=== PATIENT | male | born 1945 | race Caucasian/White ===

== ENCOUNTER → 2023-08-24 07:50 | Outpatient (REF) | payer BC, SELFPAY | LOC: DHCBC/DCA 07:50 | PROVIDERS: ATTENDING PHYSICIAN Internal Medicine Cardiovascular Disease; FAMILY PHYSICIAN Family Medicine | DX: R07.2 Precordial pain (principal) | CPT/HCPCS: 78452; 93017; A9500; J2785 ==

== ENCOUNTER → 2023-09-08 08:03 | Outpatient (REF) | payer BC, SELFPAY | LOC: HWRCS 08:03 | PROVIDERS: ATTENDING PHYSICIAN Internal Medicine Cardiovascular Disease; FAMILY PHYSICIAN Family Medicine | DX: R07.2 Precordial pain (principal) | CPT/HCPCS: 93306 ==

== ENCOUNTER 2024-09-11 23:02 | Day surgery (SDC) | payer BC, SELFPAY ==
[2024-09-11] VITALS (8 sets, daily range): BP systolic 123–144; BP diastolic 68–94; BMI 30.7
--- NOTE | 2024-09-11 19:34 | ED.GENMED ---
History of Present Illness
General
Chief Complaint: Esophageal Problem
Source: patient
Exam Limitations: none
Time Seen by Provider: 09/11/24 19:34
Nursing documentation reviewed up to this point in time: agreed with
History of Present Illness
History of Present Illness:
78 yo w h/o neuropathy, HTN, HLD, GERD, hiatal hernia, Hypothyroid, BPH, Multiple myeloma s/p stem cell transplant, now in remission, presents for difficulty swallowing and a sensation of food being stuck in his esophagus. The patient reports that
he was eating chicken when the sensation occurred. He describes previous similar episodes, occurring approximately three times in the last eight years, where food felt like it went down the wrong way. The patient experiences these episodes as a
stuck sensation that usually resolves spontaneously after about 15 minutes. Today, he couldn't swallow water as it comes back up. He received Glucagon 1 mg IM on arrival and he currently feels about 80% better since the onset of this episode. There
is no associated chest pain at present, though there was some earlier which has mostly resolved. He denies any other gastrointestinal symptoms and reports normal bowel and urinary habits.
Past History
Past History
ED Past Medical History: Cancer (Multiple myeloma in remission since 2009), HTN, Hypercholesterolemia, Other (BPH) and Other (neuropathy)
ED Past Surgical History: Orthopedic and Other (Stem cell transplant)
Social History
Tobacco: Former smoker
Alcohol: Occasional
Personal:
Living: with family
Family History
Family History: Negative Diabetes, Hypertension, Early CAD, Asthma or Cancer
Review of Systems
Review of Systems
Allergies reviewed?: Yes
All Other Systems: ROS reviewed and negative except as documented in HPI and ROS
Cardiac: Reports chest pain
ABD/GI: Reports other (Trouble swallowing, something stuck in his esophagus)
Phy Exam
Physical Exam
Physical Exam:
GENERAL: Acute distress, sensation of foreign body in esophagus, cannot swallow saliva, feeling chest pain. A&Ox3. Is able to speak well, no difficulty breathing
CONSTITUTIONAL: Afebrile.
EYES: clear, conjunctivae normal
ENMT: moist mucus membranes, Pharynx nl
RESPIRATORY: Regular respirations, nonlabored, lungs clear.
CARDIOVASCULAR: Regular rate and rhythm, no murmurs, no rubs.
GI: Soft, nontender, normal BS
MUSCULOSKELETAL: Moves with ease. Well perfused.
SKIN: Warm, dry, pink
PSYCH: Anxious mood and affect. Well kept, interactive and appropriate
NEUROLOGIC: Awake, alert and oriented. No focal neurological deficits
Course
Orders/Labs/Results
Orders:
Orders
09/11/24 19:28
EKG [Electrocardiogram (*1)] Urgent
Reason for Study: Chest Pain
EKG- Treatment ONCE
09/11/24 19:29
Glucagon [GlucaGen] 2 mg .ROUTE .STK-MED ONE
09/11/24 19:33
Glucagon [GlucaGen] 1 mg IM NOW STA
09/11/24 19:57
Glucagon [GlucaGen] 1 mg IV NOW STA
09/11/24 21:05
Sugammadex Sodium [Bridion] 200 mg .ROUTE .STK-MED ONE
09/11/24 21:06
Lidocaine 2% Mpf [Xylocaine Mpf 2%] 100 mg .ROUTE .STK-MED ONE
Ondansetron Injectable [Zofran] 4 mg .ROUTE .STK-MED ONE
Phenylephrine HCl/0.9% NaCl [Mo-Synephrine] 1,000 mcg .ROUTE .STK-MED ONE
Propofol [Diprivan] 20 ml .ROUTE .STK-MED
Rocuronium [place] [Rocuronium] 50 mg .ROUTE .STK-MED ONE
Succinylcholine Chloride [Succinylcholine] 200 mg .ROUTE .STK-MED ONE
Vital Signs
Initial and Last Documented VS:
Initial Vital Signs
Temp Pulse Resp BP Pulse Ox
98.2 F 87 20 144/94 98
09/11/24 19:17 09/11/24 19:17 09/11/24 19:17 09/11/24 19:17 09/11/24 19:17
Last Documented Vital Signs
Temp Pulse Resp BP Pulse Ox
98.0 F 95 17 124/68 94
09/11/24 22:47 09/11/24 22:47 09/11/24 22:47 09/11/24 22:47 09/11/24 22:47
MDM/Problems Addressed
Differential Diagnosis Includes:
1. Esophageal Stricture
2. Schatzki Ring
3. Esophageal Webs
4. Achalasia
5. Esophageal Spasm
6. Eosinophilic Esophagitis
7. Esophageal Cancer
8. Peptic Stricture
9. Gastroesophageal Reflux Disease (GERD)
10. Foreign Body Impaction
MDM/Problems Addressed:
78 yo w h/o neuropathy, HTN, HLD, GERD, hiatal hernia, Hypothyroid, BPH, Multiple myeloma s/p stem cell transplant, now in remission, presents for difficulty swallowing and a sensation of food being stuck in his esophagus. The patient reports that
he was eating chicken when the sensation occurred. He describes previous similar episodes, occurring approximately three times in the last eight years, where food felt like it went down the wrong way. The patient experiences these episodes as a
stuck sensation that usually resolves spontaneously after about 15 minutes. Today, he couldn't swallow water as it comes back up.
7:40 PM
EKG
He received Glucagon 1 mg IM on arrival and he currently feels about 80% better since the onset of this episode. There is no associated chest pain at present, though there was some earlier which has mostly resolved. He denies any other
gastrointestinal symptoms and reports normal bowel and urinary habits.
8:00 PM:
Unsuccessful trial at swallowing water, coughing it back up and feeling pain in the epigastric distal esophageal area
Second dose of glucagon 1 mg IV given
8:30 p.m.
Pt still unable to swallow saliva, pain is distal esophagus remains, vomiting intermittently
Consulted GI Dr. Chaparro who will be in
9:[address] Chaparro in
*Pulse Oximetry
SaO2: 98
Oxygen Mode of Delivery: Room air
Patient hypoxic: no
*Critical Care Note
Total Time (30-74mins, 75-104mins- exclusive of procedures): Not Applicable
ED Attending Note
-
Portions of this chart may have been created with voice recognition software.� Occasional wrong word or��sound alike� substitutions may have occurred due to the inherent limitations of voice recognition software.
Discharge Plan
Departure
Patient Disposition: OR
Date of Disposition: 09/11/24
Time of Disposition: 22:16
Presentation/result/management discussed w/ accepting MD/DO: Shankar
Condition: Fair
Discharge Problem:
Esophageal obstruction due to food impaction
Prescriptions:
No Action
Doxycycline
100 mg PO DAILY
Lipitor:
20 mg PO DAILY
Patient Comments:
Pt. not sure of some of his med's dosage
Synthroid
200 mcg PO .DAILY EXCEPT TUESDAY
aspirin 325 MG tablet
325 mg PO DAILY
sertraline 100 MG tablet
100 mg PO DAILY
levothyroxine 100 MCG tablet
100 mcg PO .TUESDAY
tamsulosin 0.4 MG capsule
0.4 mg PO DAILY
valsartan [Diovan] 320 MG tablet
320 mg PO DAILY
omeprazole 20 MG capsule,delayed release(DR/EC)
20 mg PO DAILY
gabapentin 100 MG capsule
100 mg PO TID
diphenhydramine HCl [Banophen] 25 MG capsule
25 mg PO HSPRN PRN (Reason: sleep)
celecoxib 200 MG capsule
200 mg PO DAILY Qty: 10 0RF
sennosides [senna] 1 TABLET tablet
2 tab PO BID 0RF
acetaminophen 325 MG tablet
650 mg PO QID 0RF
polyethylene glycol 3350 17 GRAMS powder in packet
17 grams PO DAILY 0RF
magnesium hydroxide 30 ML suspension
30 ml PO DAILYPRN PRN (Reason: constipation) 0RF
docusate sodium 100 MG capsule
100 mg PO BID 0RF
oxycodone 5 MG tablet
1 - 2 tab PO Q4HPRN PRN (Reason: moderate-severe pain) Qty: 60 0RF
acetaminophen-codeine 1 TABLET tablet
1 tab PO Q4HPRN PRN (Reason: severe pain) Qty: 10 0RF
Referrals:
UNKNOWN - PT DOES,NOT KNOW [Unknown Provider]
Interventions
Interventions:
*Risk Screen - Suicide Last Done: 09/11/24 19:17
*General Assessment Last Done: 09/11/24 19:17
*ED- Fall Risk Assessment Last Done: 09/11/24 19:17
*ED COVID-19 Vaccine History Last Done: 09/11/24 19:17
*Nursing Disposition Last Done: 09/11/24 22:23
[facility] Assessment Last Done: 09/11/24 19:39
Discharge Date and Time
Discharge Date/Time: 09/11/24 22:23
Print Language: ITALIAN
--- NOTE | 2024-09-11 21:05 | CON.GI ---
Consultation
-
Date/Time Consultation Requested: 09/11/24, 8:30 PM
Date/Time Consultation Performed: 09/11/24, 9:05 PM
Requesting Provider: VIK Thorne
Performing Provider: Roosevelt Chaparro DO
Reason for Consultation: Food Impaction
Medical History
Chief Complaint / HPI
Chief Complaint: C/f Food Impaction
History of Present Illness:
Mr. Hart is a 78 y.o male with a past medical history of HTN, HLD, hypothyroidism, multiple myeloma (s/p stem cell transplant, in remission), GERD, and hiatal hernia who presented to the ED with dysphagia and inability to tolerate secretions. GI
has been consulted due to the concern for a food impaction.
Patient states he was in his usual state of health and reports eating chicken this evening when he suddenly felt a piece of chicken feel stuck in his esophagus. He reports eating one bite of chicken during dinner where he felt a sensation of it
being hung up in his chest. Reports having chest discomfort but denies any pain or SOB. He notes previous episodes occurring the past approximately 5-6 times of the past 10 years. He has never had a prior EGD in the past or previous ED visits for
food impactions. He states the episodes would usually last 10-15 minutes and subsequently eventually resolve on their own. He denies any chronic dysphagia, odynophagia, nausea/vomiting, chronic reflux or heartburn, melena, or unintentional weight
loss. He is on daily aspirin but denies any other blood thinners or antiplatelets. He denies any known esophageal disorder. He was given 2 separate doses of glucagon 1 mg in the ED where initially felt better however still with inability to
tolerate secretions and failed p.o. challenge. He is here with his daughter, Caitlin, who is also present with him and previously worked as a nurse at [place].
Past Medical History
Past Medical History: Other (Cancer (Multiple myeloma in remission since 2009), HTN, Hypercholesterolemia, Other (BPH) and Other (neuropathy))
Past Surgical History: Other (Orthopedic and Other (Stem cell transplant))
Social History
Tobacco: Former Smoker
Alcohol: Occasional
Personal:
Family History
Family History: Reviewed & Not Pertinent
Allergies / Home Medications
Allergy/AdvReac Type Severity Reaction Status Date / Time
cats Allergy Shortness Uncoded 12/18/17 17:06
of Breath
dust mites Allergy Shortness Uncoded 12/18/17 17:06
of Breath
�Medication �Instructions �Recorded
Doxycycline 100 mg PO DAILY 10/01/10
Lipitor: 20 mg PO DAILY 10/01/10
Synthroid 200 mcg PO .DAILY EXCEPT Tuesday10/01/10
aspirin 325 mg tablet 325 mg PO DAILY 06/10/17
diphenhydramine HCl 25 mg capsule 25 mg PO HSPRN PRN sleep 06/10/17
(Banophen)
gabapentin 100 mg capsule 100 mg PO TID 06/10/17
levothyroxine 100 mcg tablet 100 mcg PO .Tuesday06/10/17
omeprazole 20 mg capsule,delayed 20 mg PO DAILY 06/10/17
release
sertraline 100 mg tablet 100 mg PO DAILY 06/10/17
tamsulosin 0.4 mg capsule 0.4 mg PO DAILY 06/10/17
valsartan 320 mg tablet (Diovan) 320 mg PO DAILY 06/10/17
acetaminophen 325 mg tablet 650 mg (2 x 325 mg) PO QID 07/05/17
celecoxib 200 mg capsule 200 mg PO DAILY ##10 07/05/17
docusate sodium 100 mg capsule 100 mg PO BID 07/05/17
magnesium hydroxide 400 mg/5 mL 30 ml PO DAILYPRN PRN constipation 07/05/17
oral suspension
oxycodone 5 mg tablet 1 - 2 tab PO Q4HPRN PRN 07/05/17
moderate-severe pain ##60
polyethylene glycol 3350 17 gram 17 grams PO DAILY 07/05/17
oral powder packet
sennosides 8.6 mg tablet (senna) 2 tab PO BID 07/05/17
acetaminophen 300 mg-codeine 30 mg 1 tab PO Q4HPRN PRN severe pain 12/18/17
tablet #10 tabs
Review of Systems
-
All other systems: A 12 pt ROS was Negative except as stated above in HPI
Vital Signs
Temp Pulse Resp BP Pulse Ox
98.2 F 88 23 144/94 96
09/11/24 19:17 09/11/24 19:40 09/11/24 19:40 09/11/24 19:17 09/11/24 19:40
Physical Exam
Exam
General: Other (Uncomfortable appearing, elderly male, spitting into bag)
HEENT: Anicteric, Moist Mucous Membranes and Other (Inability to tolerate secretions, vomiting in bag)
Respiratory: Other (Normal WOB on room air)
GI: Soft, Non Tender and Non Distended
Skin: Warm
Neuro: Nonfocal/Grossly Intact
Psych: Calm
Assessment / Plan
-
Mr. Hart is a 78 y.o male with a past medical history of HTN, HLD, hypothyroidism, multiple myeloma (s/p stem cell transplant, in remission), GERD, and hiatal hernia who presented to the ED with dysphagia and inability to tolerate secretions. GI
has been consulted due to the concern for a food impaction.
#Food Impaction
Patient presenting with a food impaction after eating one piece of chicken earlier this evening. He has had prior episodes in the past over the past several years where he would experience similar symptoms but would eventually resolve. He has never
undergone a prior EGD. Otherwise, denies any chronic dysphagia, unintentional weight loss or other concerning chronic GI symptoms. He is on once daily Aspirin but no other antiplatelets or anticoagulants. He has received 2 doses of 1 mg glucagon
without any significant relief and still feeling discomfort in his lower chest and inability to tolerate secretions consistent with a food impaction. Etiology seems suspicious for Schatzki's ring versus esophageal stricture versus reflux
esophagitis versus EOE versus malignancy. He would benefit from an urgent EGD and reviewed benefits and risks including bleeding, infection, tear/perforation and/or unforeseen complications related to anesthesia.
Plan:
- Keep strict NPO
- Plan for urgent EGD today, 09/11/2024, for further evaluation and removal of foreign body
- Discussed that he will need to be intubated for airway protection
- Further findings and recommendations to be forthcoming, see EGD report
- If a stricture/narrowing were to be visualized, would plan to perform a repeat EGD with dilation in 2-4 weeks as an outpatient
- Discussed with ED this evening
Please contact GI if any questions or concerns.
Data Reviewed
-
Old Records: Reviewed
-
-
Thank you for consultation and allowing me to participate in the patient's care. Please call the english composition instructor GI physician during the after hours with any questions or concerns.
== END 2024-09-11 23:20 | disposition home or self-care (01) ==
LOC: SDS 23:02
PROVIDERS: ATTENDING PHYSICIAN Student in an Organized Health Care Education/Training Program; EMERGENCY PHYSICIAN Emergency Medicine; FAMILY PHYSICIAN Family Medicine
DX: T18.128A Food in esophagus causing other injury, initial encounter (principal); W44.F3XA Food entering into or through a natural orifice, initial encounter; K22.2 Esophageal obstruction; K21.9 Gastro-esophageal reflux disease without esophagitis; C90.01 Multiple myeloma in remission; E03.9 Hypothyroidism, unspecified; E78.00 Pure hypercholesterolemia, unspecified; I10 Essential (primary) hypertension; N40.0 Benign prostatic hyperplasia without lower urinary tract symptoms; Z79.82 Long term (current) use of aspirin; Z87.891 Personal history of nicotine dependence; Z94.84 Stem cells transplant status
CPT/HCPCS: 43247; 93005; 96372; 96374; 99284; J1610

== ENCOUNTER 2024-11-06 06:28 | Day surgery (SDC) | payer BC, SELFPAY | END 2024-11-06 13:53 | disposition home or self-care (01) | LOC: GI 06:28 | PROVIDERS: ATTENDING PHYSICIAN Student in an Organized Health Care Education/Training Program | DX: K22.2 Esophageal obstruction (principal); K44.9 Diaphragmatic hernia without obstruction or gangrene; K31.7 Polyp of stomach and duodenum; R13.10 Dysphagia, unspecified; Z87.19 Personal history of other diseases of the digestive system | CPT/HCPCS: 43249; 43239; 88305 ==